=== PATIENT | male | born 1940 | race Caucasian/White ===

== ENCOUNTER 2022-11-16 11:15 | Emergency (ER) | payer MEDICARE ==
[~2022-11-16] VITALS: Ht 177.8 cm; Wt 97.0 kg
[~2022-11-16 11:15] MED LIST: ALLO100T PO; CARV-50 PO; CHOL400T32 PO; DILT60TA41 PO; FURO-150 PO; HYDR200T84 PO; LOVA40TA76 PO; METF500T PO; POTA-188 PO; RIVA20TA PO
[2022-11-16 11:18] VITALS: BP 154/67
[2022-11-16 12:20] LABS: CLARITY,URINE CLOUDY (Clear); COLOR,URINE RED (Yellow); GLUCOSE, URINE NEGATIVE (Neg); KETONES,URINE NEGATIVE (Neg); LEUKOCYTE ESTERASE ,URINE TRACE (Neg); OCCULT BLOOD,URINE LARGE (Neg); PH,URINE 5.5 (4.8-8.0); PROTEIN,URINE 100 mg/dl (Neg); UROBILINOGEN,URINE 0.2 E.U/dL (0.2-1.0)
[2022-11-16 12:23] LABS: UA COLLECTION TYPE STRAIGHT CATH
[2022-11-16 12:24] LABS: NITRITES, URINE NEGATIVE (Neg); WBC,URINE 0-4 /HPF (0-4)
[2022-11-16 12:25] LABS: BACTERIA,URINE FEW /HPF (Neg); MUCUS STRANDS NONE SEEN /LPF (Neg); RBC,URINE TNTC /HPF (0-2); SQUAMOUS EPITHELIAL CELL,UR NONE SEEN /LPF (FEW)
== END 2022-11-16 13:29 | disposition home or self-care (01) ==
LOC: ER 11:16
DX: R33.9 Retention of urine, unspecified (principal); R31.9 Hematuria, unspecified; E78.00 Pure hypercholesterolemia, unspecified; I11.9 Hypertensive heart disease without heart failure; I10 Essential (primary) hypertension; E11.9 Type 2 diabetes mellitus without complications; F17.200 Nicotine dependence, unspecified, uncomplicated
CPT/HCPCS: 51702; 81001; 87088; 99284; A4338; A4358

== ENCOUNTER 2022-11-29 09:18 | Inpatient (IN) | payer MEDICARE, OTHER ==
[~2022-11-29] VITALS: Ht 177.8 cm; Wt 95.5 kg
[2022-11-29 10:13] LABS: BASOPHILS # (AUTO) 0.1 X10'3 (0-0.2); BASOPHILS % (AUTO) 1.3 % (0-1); EOSINOPHILS # (AUTO) 0.2 X10'3 (0-0.9); EOSINOPHILS % (AUTO) 4.3 % (0-6); HEMATOCRIT 27.5 % (42.0-52.0); HEMOGLOBIN 8.9 g/dl (14.0-17.9); LYMPHOCYTES # (AUTO) 1.1 X10'3 (1.1-4.8); LYMPHOCYTES % (AUTO) 19.7 % (21-51); MEAN CORPUSCULAR HEMOGLOBIN 31.7 PG (27.0-31.0); MEAN CORPUSCULAR HGB CONC 32.5 g/dL (33.0-36.5); MEAN CORPUSCULAR VOLUME 97.4 FL (78-98); MEAN PLATELET VOLUME 8.7 FL (7.4-10.4); MONOCYTES # (AUTO) 0.5 X10'3 (0-0.9); MONOCYTES % (AUTO) 8.5 % (2-12); NEUTROPHILS # (AUTO) 3.8 X10'3 (1.8-7.7); NEUTROPHILS % (AUTO) 66.2 % (42-75); PLATELET COUNT 208 X10'3 (140-440); RED BLOOD COUNT 2.83 X10'6 (4.70-6.10); RED CELL DISTRIBUTION WIDTH 15.9 % (11.5-14.5); WHITE BLOOD COUNT 5.8 X10'3 (4.5-11.0)
[2022-11-29 10:34] LABS: ALANINE AMINOTRANSFERASE 25 U/L (12-78); ALBUMIN 3.3 G/DL (3.4-5.0); ALKALINE PHOSPHATASE 125 IU/L (46-116); ANION GAP 10 (8-16); ASPARTATE AMINO TRANSFERASE 23 U/L (10-37); BLOOD UREA NITROGEN 16 MG/DL (7-18); BUN/CREATININE RATIO 10.9 (5.4-32.0); CALCIUM 8.5 MG/DL (8.5-10.1); CHLORIDE 108 MMOL/L (99-107); CREATININE 1.47 MG/DL (0.60-1.10); GLUCOSE 155 MG/DL (70-104); MAGNESIUM 1.7 MG/DL (1.5-2.4); POTASSIUM 4.1 MMOL/L (3.5-5.1); SODIUM 143 MMOL/L (135-145); TOTAL CARBON DIOXIDE 25.4 MMOL/L (24-32); TOTAL PROTEIN 6.5 G/DL (6.4-8.2); eGFR 46 ML/MIN
[2022-11-29] MEDS ORDERED: aspirin 81mg tab.chew PO ONE (11:35)
[2022-11-29] MEDS ORDERED: PERFLUTREN PROTEIN-A MICROSPHR (Optison) 0.22 MG/ML 3ML VIAL IV ONE (12:05)
[2022-11-29] MEDS ORDERED: acetaminophen 325mg tablet PO PRN (12:05)
[2022-11-29] MEDS ORDERED: magnesium hydroxide 30ml (MOM) UD suspension PO PRN (12:05)
[2022-11-29] MEDS ORDERED: magnesium 4gm in 100ml NS 100 ML IV PRN (12:05)
[2022-11-29] MEDS ORDERED: ondansetron/PF 4mg/2ml inj IV PRN (12:05)
[2022-11-29] MEDS ORDERED: potassium Cl 40MEQ/1/2NS 520ml 520 ML IV PRN (12:05)
[2022-11-29] MEDS ORDERED: mag hydrox/Alum hydrox/simeth 30ml oral suspension PO PRN (12:05)
[2022-11-29] MEDS ORDERED: magnesium Cl slow-release 64mg tablet PO PRN (12:05)
[2022-11-29] MEDS ORDERED: potassium Cl 20 mEq SR tablet PO PRN ×2 (12:05)
--- NOTE | 2022-11-29 12:29 | NUR ---
REFUSED ASA . STATES HE IS TAKING COUMADIN AND DR BROTHERS TOLD HIM NEVER TO TAKE ASA AGAIN.
[2022-11-29] MEDS ORDERED: CefTRIAXone 2gm/D5W 50ml BAG 50 ML IV ONE (13:40)
[2022-11-29] MEDS ORDERED: PIOG30TA71 PO (14:32)
[2022-11-29] MEDS ORDERED: ATOR10TA70 PO (14:32)
[2022-11-29] MEDS ORDERED: FURO40TA4 PO (14:32)
[2022-11-29] MEDS ORDERED: WARF-55 PO (14:32)
[2022-11-29] MEDS ORDERED: GLIM2TAB6 PO (14:32)
[2022-11-29] MEDS ORDERED: LISI20TA28 PO (14:32)
[2022-11-29] MEDS ORDERED: CARV25TA2 PO (14:32)
[2022-11-29] MEDS ORDERED: POTA-197 PO (14:32)
[2022-11-29] MEDS ORDERED: WARF5TAB9 PO (14:32)
[2022-11-29] MEDS ORDERED: ATOR-2 PO (14:33)
[2022-11-29] MEDS ORDERED: morphine 4 MG/ML inj SYRINge IV ONE (16:50)
[2022-11-29] MEDS: K and/or MAG REPLACEMENT MC SCH (20:00)
[2022-11-29] MEDS: docusate sod 100mg capsule PO SCH (20:00)
[2022-11-29] MEDS: furosemide 40mg/4ml inj IV SCH (20:19)
[2022-11-29] MEDS: carVEDilol 12.5mg tablet PO SCH (20:19)
--- NOTE | 2022-11-29 20:30 | NUR ---
Patient in room PCU 3015. I have received report from Chely CEJA RN and had the opportunity to ask questions and assume patient care.
[2022-11-29 22:00] VITALS: BP 153/85
[2022-11-30 02:00] VITALS: BP 149/80
[2022-11-30 06:31] LABS: BASOPHILS # (AUTO) 0.1 X10'3 (0-0.2); BASOPHILS % (AUTO) 0.9 % (0-1); EOSINOPHILS # (AUTO) 0.1 X10'3 (0-0.9); EOSINOPHILS % (AUTO) 1.2 % (0-6); HEMATOCRIT 28.1 % (42.0-52.0); HEMOGLOBIN 9.2 g/dl (14.0-17.9); LYMPHOCYTES # (AUTO) 1.1 X10'3 (1.1-4.8); LYMPHOCYTES % (AUTO) 12.3 % (21-51); MEAN CORPUSCULAR HEMOGLOBIN 32.2 PG (27.0-31.0); MEAN CORPUSCULAR HGB CONC 32.8 g/dL (33.0-36.5); MEAN CORPUSCULAR VOLUME 98.1 FL (78-98); MEAN PLATELET VOLUME 8.8 FL (7.4-10.4); MONOCYTES # (AUTO) 0.8 X10'3 (0-0.9); MONOCYTES % (AUTO) 9.6 % (2-12); NEUTROPHILS # (AUTO) 6.6 X10'3 (1.8-7.7); PLATELET COUNT 195 X10'3 (140-440); RED BLOOD COUNT 2.86 X10'6 (4.70-6.10); WHITE BLOOD COUNT 8.7 X10'3 (4.5-11.0)
[2022-11-30 07:01] LABS: ALBUMIN 3.3 G/DL (3.4-5.0); ANION GAP 11 (8-16); BLOOD UREA NITROGEN 21 MG/DL (7-18); BUN/CREATININE RATIO 13.5 (5.4-32.0); CALCIUM 8.7 MG/DL (8.5-10.1); CHLORIDE 105 MMOL/L (99-107); CREATININE 1.55 MG/DL (0.60-1.10); GLUCOSE 167 MG/DL (70-104); MAGNESIUM 1.6 MG/DL (1.5-2.4); POTASSIUM 3.8 MMOL/L (3.5-5.1); SODIUM 143 MMOL/L (135-145); TOTAL CARBON DIOXIDE 26.6 MMOL/L (24-32); eGFR 43 ML/MIN
[2022-11-30 08:00] VITALS: BP 159/94
[2022-11-30] MEDS ORDERED: potassium Cl 20 mEq SR tablet PO SCH (08:00)
[2022-11-30] MEDS: K and/or MAG REPLACEMENT MC SCH ×2 (08:00→18:59)
[2022-11-30] MEDS: furosemide 40mg/4ml inj IV SCH ×2 (09:09→21:34)
[2022-11-30] MEDS: docusate sod 100mg capsule PO SCH ×2 (09:09→20:00)
[2022-11-30] MEDS: atorvastatin 20mg tablet PO SCH (09:09)
[2022-11-30] MEDS: carVEDilol 12.5mg tablet PO SCH ×2 (09:10→21:33)
[2022-11-30] MEDS: lisinopril 20mg tablet PO SCH (09:12)
[2022-11-30] MEDS: pioglitazone 15mg tablet PO SCH (09:14)
[2022-11-30 12:00] VITALS: BP 122/68
[2022-11-30 16:00] VITALS: BP 135/72
[2022-11-30] MEDS ORDERED: DEXTROSE 15 GM of carb/4 tabs (each vial/BOTTLE has 4 tablets) PO PRN ×2 (16:25)
[2022-11-30] MEDS ORDERED: dextrose 50%-water 50ml dispensing syringe IV PRN ×2 (16:25)
[2022-11-30] MEDS ORDERED: glucagon, human recombinant 1mg kit SUBCUT PRN (16:25)
[2022-11-30] MEDS ORDERED: insulin Lispro (HumaLOG) vial - multi-dose SQ SCH (16:25)
[2022-11-30] MEDS ORDERED: MESSAGE TO PHARMACY PO ONE (16:25)
[2022-11-30 17:10] LABS: HEMOGLOBIN A1C 5.6 % (4.5-6.2)
[2022-11-30] MEDS ORDERED: insulin glargine (Lantus) pen - multi-dose SQ SCH (21:00)
[2022-11-30 22:00] VITALS: BP 137/71
[2022-12-01 06:00] VITALS: BP 159/98
--- NOTE | 2022-12-01 06:32 | NUR ---
I received report from MINA Avendaño and pt. Will continue to monitor.
[2022-12-01 06:57] LABS: ALBUMIN 3.1 G/DL (3.4-5.0); ANION GAP 5 (8-16); BASOPHILS # (AUTO) 0.1 X10'3 (0-0.2); BASOPHILS % (AUTO) 0.8 % (0-1); BLOOD UREA NITROGEN 21 MG/DL (7-18); BUN/CREATININE RATIO 14.7 (5.4-32.0); CALCIUM 8.2 MG/DL (8.5-10.1); CHLORIDE 104 MMOL/L (99-107); CREATININE 1.43 MG/DL (0.60-1.10); EOSINOPHILS # (AUTO) 0.3 X10'3 (0-0.9); EOSINOPHILS % (AUTO) 2.8 % (0-6); GLUCOSE 136 MG/DL (70-104); HEMATOCRIT 28.6 % (42.0-52.0); HEMOGLOBIN 9.7 g/dl (14.0-17.9); LYMPHOCYTES # (AUTO) 1.4 X10'3 (1.1-4.8); MAGNESIUM 1.6 MG/DL (1.5-2.4); MEAN CORPUSCULAR HEMOGLOBIN 32.1 PG (27.0-31.0); MEAN CORPUSCULAR VOLUME 94.5 FL (78-98); MEAN PLATELET VOLUME 9.1 FL (7.4-10.4); MONOCYTES # (AUTO) 0.8 X10'3 (0-0.9); MONOCYTES % (AUTO) 8.7 % (2-12); NEUTROPHILS # (AUTO) 6.6 X10'3 (1.8-7.7); NEUTROPHILS % (AUTO) 72.7 % (42-75); PLATELET COUNT 226 X10'3 (140-440); RED BLOOD COUNT 3.03 X10'6 (4.70-6.10); RED CELL DISTRIBUTION WIDTH 15.4 % (11.5-14.5); SODIUM 145 MMOL/L (135-145); WHITE BLOOD COUNT 9.1 X10'3 (4.5-11.0); eGFR 47 ML/MIN
[2022-12-01 07:01] LABS: POTASSIUM 2.8 MMOL/L (3.5-5.1)
--- NOTE | 2022-12-01 07:18 | NUR ---
3015B Deppe, E. ARCHIVAL STUDIES PROFESSOR K+ 2.8 will replace per pro. Prudence [id number] notified
[2022-12-01] MEDS: furosemide 40mg/4ml inj IV SCH (07:38)
[2022-12-01] MEDS: pioglitazone 15mg tablet PO SCH (07:38)
[2022-12-01] MEDS: lisinopril 20mg tablet PO SCH (07:39)
[2022-12-01] MEDS: carVEDilol 12.5mg tablet PO SCH (07:40)
[2022-12-01] MEDS: atorvastatin 20mg tablet PO SCH (07:40)
[2022-12-01 11:00] VITALS: BP 128/60
== END 2022-12-01 13:18 | disposition home or self-care (01) | DRG 280 ==
LOC: ER 09:18 → ED HOLD 12:04 → EDBEDREQ 20:01 → PCU 3S 20:30
PROVIDERS: ADMIT Family Medicine; ATTEND Family Medicine
DX: I11.0 Hypertensive heart disease with heart failure (principal); I50.23 Acute on chronic systolic (congestive) heart failure; I21.A1 Myocardial infarction type 2; D62 Acute posthemorrhagic anemia; R31.0 Gross hematuria; Z20.822 Contact with and (suspected) exposure to COVID-19; E11.9 Type 2 diabetes mellitus without complications; E78.00 Pure hypercholesterolemia, unspecified; M10.9 Gout, unspecified; I25.10 Atherosclerotic heart disease of native coronary artery without angina pectoris; I48.91 Unspecified atrial fibrillation; M06.9 Rheumatoid arthritis, unspecified; Z79.01 Long term (current) use of anticoagulants; Z85.46 Personal history of malignant neoplasm of prostate; Z95.1 Presence of aortocoronary bypass graft; Z95.810 Presence of automatic (implantable) cardiac defibrillator; Z79.899 Other long term (current) drug therapy
CPT/HCPCS: 36415; 71046; 76770; 80048; 80053; 82948; 83036; 83735; 83880; 84145; 84484; 85025; 85610; 87081; 87502; 87503; 87811; 93306; 99285; A4346; A4355; A4358; G0378; J0696; J1815; J1940; J2270

== ENCOUNTER 2022-12-17 08:42 | Emergency (ER) | payer MEDICARE, OTHER ==
[~2022-12-17] VITALS: Ht 177.8 cm; Wt 96.0 kg
[~2022-12-17 08:42] MED LIST changes: -ALLO100T PO; +ATOR-2 PO; -CARV-50 PO; +CARV25TA2 PO; -CHOL400T32 PO; -DILT60TA41 PO; -FURO-150 PO; +FURO40TA4 PO; +GLIM2TAB6 PO; -HYDR200T84 PO; +LISI20TA28 PO; -LOVA40TA76 PO; -METF500T PO; +PIOG30TA71 PO; -POTA-188 PO; +POTA-197 PO; -RIVA20TA PO; +WARF-55 PO; +WARF5TAB9 PO
[2022-12-17 09:56] LABS: BASOPHILS # (AUTO) 0.1 X10'3 (0-0.2); BASOPHILS % (AUTO) 1.4 % (0-1); EOSINOPHILS # (AUTO) 0.3 X10'3 (0-0.9); EOSINOPHILS % (AUTO) 5.7 % (0-6); HEMATOCRIT 27.5 % (42.0-52.0); HEMOGLOBIN 8.5 g/dl (14.0-17.9); LYMPHOCYTES # (AUTO) 0.8 X10'3 (1.1-4.8); LYMPHOCYTES % (AUTO) 16.2 % (21-51); MEAN CORPUSCULAR HEMOGLOBIN 29.8 PG (27.0-31.0); MEAN CORPUSCULAR VOLUME 95.9 FL (78-98); MONOCYTES # (AUTO) 0.4 X10'3 (0-0.9); NEUTROPHILS # (AUTO) 3.6 X10'3 (1.8-7.7); NEUTROPHILS % (AUTO) 69.7 % (42-75); PLATELET COUNT 222 X10'3 (140-440); RED BLOOD COUNT 2.87 X10'6 (4.70-6.10); RED CELL DISTRIBUTION WIDTH 17.2 % (11.5-14.5); WHITE BLOOD COUNT 5.2 X10'3 (4.5-11.0)
[2022-12-17 10:36] LABS: ALANINE AMINOTRANSFERASE 19 U/L (12-78); ALBUMIN 3.4 G/DL (3.4-5.0); ALKALINE PHOSPHATASE 114 IU/L (46-116); ANION GAP 9 (8-16); ASPARTATE AMINO TRANSFERASE 19 U/L (10-37); BILIRUBIN,TOTAL 0.6 MG/DL (0.1-1.0); BLOOD UREA NITROGEN 31 MG/DL (7-18); CHLORIDE 106 MMOL/L (99-107); CREATININE 1.63 MG/DL (0.60-1.10); GLUCOSE 88 MG/DL (70-104); MAGNESIUM 2.2 MG/DL (1.5-2.4); POTASSIUM 4.1 MMOL/L (3.5-5.1); SODIUM 141 MMOL/L (135-145); TOTAL CARBON DIOXIDE 26.5 MMOL/L (24-32); TOTAL PROTEIN 6.9 G/DL (6.4-8.2); eGFR 41 ML/MIN
[2022-12-17 11:47] VITALS: BP 166/84
== END 2022-12-17 12:07 | disposition home or self-care (01) ==
LOC: ER 08:43
DX: I48.91 Unspecified atrial fibrillation (principal); I11.0 Hypertensive heart disease with heart failure; I50.9 Heart failure, unspecified; I25.10 Atherosclerotic heart disease of native coronary artery without angina pectoris; R77.8 Other specified abnormalities of plasma proteins; E11.9 Type 2 diabetes mellitus without complications; G47.30 Sleep apnea, unspecified; Z95.1 Presence of aortocoronary bypass graft; Z72.89 Other problems related to lifestyle; Z79.899 Other long term (current) drug therapy
CPT/HCPCS: 36415; 71045; 80053; 83735; 83880; 84484; 85025; 93005; 99285

== ENCOUNTER 2023-02-11 11:33 | Day surgery (SDC) | payer MEDICARE, OTHER ==
[~2023-02-11] VITALS: Ht 177.8 cm; Wt 99.1 kg
[2023-02-11] VITALS (9 sets, daily range): BP systolic 112–142; BP diastolic 56–93
[2023-02-11] MEDS ORDERED: LORazepam 0.5 MG tablet PO PRN (12:00)
[2023-02-11] MEDS ORDERED: normal saline 1,000 ML IV SCH (12:00)
[2023-02-11] MEDS ORDERED: METO5TAB7 PO (12:06)
[2023-02-11] MEDS ORDERED: BETA1TAB20 PO (12:06)
[2023-02-11] MEDS ORDERED: CHOL500050 PO (12:06)
[2023-02-11] MEDS ORDERED: iohexol 350 MG/ML 50ML vial IV ONE (13:39)
[2023-02-11] MEDS ORDERED: midazolam 1 mg/ML 2ml injection ONE (13:39)
[2023-02-11] MEDS ORDERED: fentaNYL/PF 50MCG/1 ML 2ML syringe ONE (13:39)
[2023-02-11] MEDS ORDERED: heparin 1,000unit/ml 10ml vial 10 ML ONE (13:39)
[2023-02-11] MEDS ORDERED: LIDOcaine 1% 30ml preserv. free vial ONE (13:39)
[2023-02-11] MEDS ORDERED: HYDROcodone/acetaminophen 5mg/325mg tablet PO PRN (15:10)
[2023-02-11] MEDS ORDERED: HYDROcodone/acetaminophen 10/325mg tab PO PRN (15:10)
[2023-02-12 06:45] LABS: ISTAT Hct MIX 22 %PCV (42-52); ISTAT O2 SATURATION MIX VENOUS 65 % (60-80); ISTAT SOURCE BLNK
== END 2023-02-11 17:15 | disposition home or self-care (01) ==
LOC: SSTAY O 11:33
PROVIDERS: ATTEND Student in an Organized Health Care Education/Training Program
DX: I11.0 Hypertensive heart disease with heart failure (principal); I50.22 Chronic systolic (congestive) heart failure; I48.91 Unspecified atrial fibrillation; E78.5 Hyperlipidemia, unspecified; I25.2 Old myocardial infarction; R73.03 Prediabetes; I25.10 Atherosclerotic heart disease of native coronary artery without angina pectoris; Z95.1 Presence of aortocoronary bypass graft; Z79.84 Long term (current) use of oral hypoglycemic drugs; Z79.899 Other long term (current) drug therapy
CPT/HCPCS: 33289; 76937; 82803; 82948; 85014; 93005; 99152; 99153; C1751; C1769; C2624; J1644; J2250; J3010; J3490; J7030; Q9967; A6258; A6449; C1894

== ENCOUNTER 2023-07-09 09:05 | Outpatient (CLI) | payer MEDICARE, OTHER ==
[~2023-07-09 09:05] MED LIST changes: +BETA1TAB20 PO; +CHOL500050 PO; +METO5TAB7 PO; -WARF-55 PO
[2023-07-09 09:37] LABS: BASOPHILS # (AUTO) 0.1 X10'3 (0-0.2); EOSINOPHILS # (AUTO) 0.6 X10'3 (0-0.9); EOSINOPHILS % (AUTO) 10.1 % (0-6); HEMATOCRIT 35.7 % (42.0-52.0); HEMOGLOBIN 11.8 g/dl (14.0-17.9); LYMPHOCYTES # (AUTO) 1.3 X10'3 (1.1-4.8); LYMPHOCYTES % (AUTO) 21.3 % (21-51); MEAN CORPUSCULAR HEMOGLOBIN 29.1 PG (27.0-31.0); MEAN CORPUSCULAR VOLUME 88.2 FL (78-98); MONOCYTES # (AUTO) 0.5 X10'3 (0-0.9); MONOCYTES % (AUTO) 8.2 % (2-12); NEUTROPHILS # (AUTO) 3.6 X10'3 (1.8-7.7); NEUTROPHILS % (AUTO) 59.4 % (42-75); PLATELET COUNT 164 X10'3 (140-440); RED BLOOD COUNT 4.05 X10'6 (4.70-6.10); RED CELL DISTRIBUTION WIDTH 18.6 % (11.5-14.5); WHITE BLOOD COUNT 6.1 X10'3 (4.5-11.0)
[2023-07-09 09:46] LABS: INR 2.4 INR; PROTHROMBIN TIME 24.9 SECONDS (9.0-12.0)
[2023-07-09 09:49] LABS: ALANINE AMINOTRANSFERASE 17 U/L (12-78); ALBUMIN 3.5 G/DL (3.4-5.0); ALBUMIN/GLOBULIN RATIO 0.9 (1.1-1.5); ALKALINE PHOSPHATASE 164 IU/L (46-116); ANION GAP 9 (8-16); ASPARTATE AMINO TRANSFERASE 16 U/L (10-37); BILIRUBIN,TOTAL 0.9 MG/DL (0.1-1.0); BLOOD UREA NITROGEN 20 MG/DL (7-18); BUN/CREATININE RATIO 15.7 (10.0-20.0); CALCIUM 8.7 MG/DL (8.5-10.1); CHLORIDE 105 MMOL/L (99-107); CREATININE 1.27 MG/DL (0.60-1.10); GLUCOSE 150 MG/DL (70-104); SODIUM 144 MMOL/L (135-145); TOTAL CARBON DIOXIDE 29.7 MMOL/L (24-32); TOTAL PROTEIN 7.5 G/DL (6.4-8.2); eGFR 54 ML/MIN
[2023-07-09] MEDS ORDERED: iohexol 350MG/ML 100ml bottle IV ONE (10:18)
[2023-07-09] MEDS ORDERED: IODIXANOL 320 MG/ML INFUS..BTL 100ML IV ONE (11:08)
[2023-07-09 12:16] LABS: ANISOCYTOSIS 2+; PLATELET ESTIMATE NORMAL
[2023-07-09 12:17] LABS: BURR CELLS 1+; ELLIPTOCYTES FEW
== END 2023-07-09 23:59 | disposition home or self-care (01) ==
LOC: RAD 09:05
PROVIDERS: ATTEND Student in an Organized Health Care Education/Training Program
DX: I48.91 Unspecified atrial fibrillation (principal); I48.92 Unspecified atrial flutter; I25.10 Atherosclerotic heart disease of native coronary artery without angina pectoris; I70.0 Atherosclerosis of aorta; I51.7 Cardiomegaly; M47.814 Spondylosis without myelopathy or radiculopathy, thoracic region; M25.78 Osteophyte, vertebrae; Z95.1 Presence of aortocoronary bypass graft; Z98.890 Other specified postprocedural states
CPT/HCPCS: 36415; 75572; 80053; 85008; 85025; 85610; J3490; Q9967; 76377

== ENCOUNTER 2023-07-24 08:41 | Inpatient (IN) | payer MEDICARE, OTHER ==
[2023-07-16 11:00] LABS: BASOPHILS # (AUTO) 0.1 X10'3 (0-0.2); BASOPHILS % (AUTO) 0.9 % (0-1); EOSINOPHILS # (AUTO) 0.6 X10'3 (0-0.9); EOSINOPHILS % (AUTO) 7.4 % (0-6); LYMPHOCYTES # (AUTO) 1.2 X10'3 (1.1-4.8); LYMPHOCYTES % (AUTO) 14.8 % (21-51); MEAN CORPUSCULAR HEMOGLOBIN 29.1 PG (27.0-31.0); MEAN CORPUSCULAR HGB CONC 32.6 g/dL (33.0-36.5); MEAN CORPUSCULAR VOLUME 89.4 FL (78-98); MEAN PLATELET VOLUME 9.3 FL (7.4-10.4); MONOCYTES # (AUTO) 0.6 X10'3 (0-0.9); MONOCYTES % (AUTO) 7.4 % (2-12); NEUTROPHILS # (AUTO) 5.5 X10'3 (1.8-7.7); NEUTROPHILS % (AUTO) 69.5 % (42-75); PRE OP HEMATOCRIT 36.9 % (42.0-52.0); PRE OP PLATELET COUNT 163 X10'3 (140-440); PRE OP WHITE BLOOD COUNT 7.9 10'3 (4.8-10.8); RED BLOOD COUNT 4.13 X10'6 (4.70-6.10)
[2023-07-16 11:11] LABS: PRE OP PROTIME 21.4 SECONDS (9.0-12.0)
[2023-07-16 11:24] LABS: ALBUMIN 3.5 G/DL (3.4-5.0); ALBUMIN/GLOBULIN RATIO 0.9 (1.1-1.5); ALKALINE PHOSPHATASE 158 IU/L (46-116); BLOOD UREA NITROGEN 17 MG/DL (7-18); BUN/CREATININE RATIO 12.9 (10.0-20.0); CHLORIDE 107 MMOL/L (99-107); CREATININE 1.32 MG/DL (0.60-1.10); PRE OP ALT 11 U/L (30-65); PRE OP ANION GAP 6 (8-16); PRE OP AST 20 U/L (10-37); PRE OP BILIRUB, TOTAL 1.2 MG/DL (0.0-1.0); PRE OP GLUCOSE 123 MG/DL (70-104); PRE OP POTASSIUM 4.1 MMOL/L (3.4-5.1); PRE OP SODIUM 141 MMOL/L (135-145); TOTAL CARBON DIOXIDE 27.9 MMOL/L (24-32); TOTAL PROTEIN 7.5 G/DL (6.4-8.2); eGFR 52 ML/MIN
[2023-07-16 11:28] LABS: BILIRUBIN,URINE NEGATIVE (Neg); CLARITY,URINE SLIGHTLY CLOUDY (Clear); COLOR,URINE YELLOW (Yellow); GLUCOSE, URINE NEGATIVE (Neg); KETONES,URINE NEGATIVE (Neg); LEUKOCYTE ESTERASE ,URINE SMALL (Neg); NITRITES, URINE NEGATIVE (Neg); OCCULT BLOOD,URINE TRACE-INTACT (Neg); PH,URINE 7.5 (4.8-8.0); PROTEIN,URINE 100 mg/dl (Neg)
[2023-07-16 11:29] LABS: UA COLLECTION TYPE CLN CATCH MIDSTREAM
[2023-07-16 11:31] LABS: HEMOGLOBIN A1C 8.1 % (4.5-6.2)
[2023-07-16 11:36] LABS: BACTERIA,URINE 1+ /HPF (Neg); SQUAMOUS EPITHELIAL CELL,UR FEW /LPF (FEW); TRANSITIONAL EPI CELLS,URINE FEW /HPF; WBC CLUMPS,URINE MODERATE /HPF (NEGATIVE); WBC,URINE TNTC /HPF (0-4)
[2023-07-16 11:43] LABS: PRE OP INR 2.1 INR
[2023-07-16 12:05] LABS: CALCIUM 9.2 MG/DL (8.5-10.1)
[2023-07-24] VITALS (20 sets, daily range): BP systolic 81–163; BP diastolic 63–91; PULSE 63–88; RESP 12–21; TEMP 97.8–98.2; O2SAT 90–99
[~2023-07-24] VITALS: Ht 172.7 cm; Wt 102.1 kg
[2023-07-24] MEDS: ringers solution, lacted 1,000 ML IV SCH (05:00)
[~2023-07-24 08:41] MED LIST changes: +CIPR-429 PO; +DOCUMENT DATE & TIME OF BETA-BLOCKER PO ONE; -METO5TAB7 PO; -PIOG30TA71 PO; +WARF-55 PO; +cefazolin 2gm/D5W 100mL 100 ML IV ONE; +famotidine 20mg tablet PO ONE; +ondansetron/PF 4mg/2ml inj IV PRN; +vancomycin 1,500 MG in NS 300ml IV soln IV ONE
[2023-07-24 10:46] LABS: PRE OP INR 1.3 INR; PRE OP PROTIME 14.2 SECONDS (9.0-12.0)
[2023-07-24] MEDS ORDERED: ePHEDrine 50MG/ML INJ. ONE (16:14)
[2023-07-24] MEDS ORDERED: heparin 1,000unit/ml 10ml vial 10 ML ONE ×2 (16:14→17:26)
[2023-07-24] MEDS ORDERED: LIDOcaine 1% (10mg/ml) 2ml vial ONE (16:47)
[2023-07-24] MEDS ORDERED: iohexol 350MG/ML 100ml bottle IV ONE (16:49)
[2023-07-24] MEDS ORDERED: sevoflurane 250ml liquid IH ONE (17:08)
[2023-07-24] MEDS ORDERED: fentaNYL/PF 50MCG/1 ML 2ML syringe ONE (17:10)
[2023-07-24] MEDS ORDERED: midazolam 1 mg/ML 2ml injection ONE (17:11)
[2023-07-24] MEDS ORDERED: propofol inj 20 ML IV ONE (17:25)
[2023-07-24] MEDS ORDERED: LIDOcaine 1%/PF 5ML 10 MG/ML VIAL ONE ×2 (17:26→17:55)
[2023-07-24] MEDS ORDERED: dexamethasone sod phosphate 4mg/ml inj. ONE (17:35)
[2023-07-24] MEDS ORDERED: ondansetron/PF 4mg/2ml inj ONE (17:35)
--- NOTE | 2023-07-24 18:09 | NUR ---
Received from OR via BED IN STABLE CONDITION AND RIGHT GROIN STABLE , accompanied by Anesthesiologist and DOUBLE NEEDLE OPERATOR LOCKSTITCH report given by DOUBLE NEEDLE OPERATOR LOCKSTITCH AND Anesthesiolgist. Addendum: 07/24/23 at 1903 by Alvina Maya RN Amended: Links added.
[2023-07-24] MEDS ORDERED: ondansetron/PF 4mg/2ml inj IV PRN ×2 (18:10→18:20)
[2023-07-24] MEDS ORDERED: glucagon, human recombinant 1mg kit SUBCUT PRN (18:10)
[2023-07-24] MEDS ORDERED: insulin Lispro (HumaLOG) vial - multi-dose SQ SCH (18:10)
[2023-07-24] MEDS ORDERED: labetalol 20mg/4ml (5mg/ml) syringe IV PRN ×2 (18:10→18:20)
[2023-07-24] MEDS ORDERED: potassium Cl 40MEQ/270ML bag 250 ML IV PRN (18:10)
[2023-07-24] MEDS ORDERED: potassium Cl 20 mEq SR tablet PO PRN (18:10)
[2023-07-24] MEDS ORDERED: insulin regular, human U-100 3ml vial - multi-dose SQ SCH (18:10)
[2023-07-24] MEDS ORDERED: diphenhydrAMINE 25mg capsule PO PRN (18:10)
[2023-07-24] MEDS ORDERED: normal saline 1000ml 1,000 ML IV SCH (18:10)
[2023-07-24] MEDS ORDERED: proCHLORperazine 10 MG/2 ml inj IV PRN ×2 (18:10→18:20)
[2023-07-24] MEDS ORDERED: DEXTROSE 15 GM of carb/4 tabs (each vial/BOTTLE has 4 tablets) PO PRN ×2 (18:10)
[2023-07-24] MEDS ORDERED: dextrose 50%-water 50ml dispensing syringe IV PRN ×2 (18:10)
[2023-07-24] MEDS ORDERED: docusate sod 100mg capsule PO PRN (18:10)
[2023-07-24] MEDS ORDERED: magnesium 2GM in 50ml NS 50 ML IV PRN (18:10)
[2023-07-24] MEDS ORDERED: hydrALAZINE 20mg/ml inj. IV PRN ×2 (18:10→18:20)
[2023-07-24] MEDS ORDERED: MESSAGE TO PHARMACY PO ONE (18:10)
[2023-07-24] MEDS ORDERED: potassium Cl 40MEQ/1/2NS 520ml 520 ML IV PRN (18:10)
[2023-07-24] MEDS ORDERED: potassium CL 10mEq/100ml bag 100 ML IV PRN (18:10)
[2023-07-24] MEDS ORDERED: potassium Cl 20mEq/100mL bag 100 ML IV PRN (18:10)
[2023-07-24] MEDS ORDERED: ALPRAZolam 0.25mg tablet PO PRN (18:10)
[2023-07-24] MEDS ORDERED: acetaminophen 325mg tablet PO PRN (18:10)
[2023-07-24] MEDS ORDERED: magnesium 4gm in 100ml NS 100 ML IV PRN (18:10)
[2023-07-24] MEDS ORDERED: pantoprazole 40mg Tablet.DR PO PRN (18:10)
[2023-07-24] MEDS ORDERED: morphine 2 MG/ML inj. syringe IV PRN (18:20)
[2023-07-24] MEDS ORDERED: morphine 4 MG/ML inj SYRINge IV PRN (18:20)
[2023-07-24] MEDS ORDERED: HYDROmorphone/PF 0.2 MG/ML SYRINGE IV PRN ×2 (18:20)
[2023-07-24] MEDS ORDERED: meperidine/PF 25mg/ml syringe IV PRN (18:20)
[2023-07-24] MEDS ORDERED: acetaminophen 1,000mg/100ml IV 100 ML IV PRN (18:20)
[2023-07-24] MEDS ORDERED: ringers solution, lacted 1,000 ML IV SCH (18:20)
--- NOTE | 2023-07-24 18:55 | NUR ---
ART LINE DC'D PRESSURE DRESSING APPLIED. Addendum: 07/24/23 at 1901 by Alvina Maya RN Amended: Links added.
--- NOTE | 2023-07-24 19:30 | NUR ---
Yancy BURR, PRESSURE APPLIED FOR 5 MIN THEN DRESSED. KIRSTEN SHIELDS. Addendum: 07/24/23 at 1941 by Alvina Maya RN Amended: Links added.
--- NOTE | 2023-07-24 19:49 | NUR ---
PATIENT DISCHARGED FROM PACU IN STABLE CONDITION AFTER REPORT GIVEN TO RN TAKING OVER PATIENTS CARE. PATIENT TRANSFERRED TO ROOM [facility] VIA BED WITH RN X2. Addendum: 07/24/23 at 2007 by Alvina Maya RN Amended: Links added.
--- NOTE | 2023-07-24 20:35 | NUR ---
Pt arrived on unit at 1958. Placed on Tele monitor and Q15 post op vitals. Pt will be flat until 2300. Right femoral access site is soft and no blood is present at site or on bandage at this time.
--- NOTE | 2023-07-24 20:37 | NUR ---
MD called for pain medication for pt. Telephone order given for [place] 5mg Q4H, PO, PRN for mild to moderate pain. Order placed per
[2023-07-24] MEDS ORDERED: HYDROcodone/acetaminophen 5mg/325mg tablet PO PRN (20:40)
[2023-07-24] MEDS ORDERED: insulin glargine (Lantus) pen - multi-dose SQ SCH (21:00)
[2023-07-24] MEDS ORDERED: atorvastatin 20mg tablet PO SCH (21:00)
[2023-07-24] MEDS: carVEDilol 12.5mg tablet PO SCH (21:11)
[2023-07-24] MEDS: ciprofloxacin 250mg tablet PO SCH (21:12)
[2023-07-25 00:08] VITALS: RESP 15; O2SAT 93
[2023-07-25 02:00] VITALS: BP 116/59; PULSE 67; RESP 13; TEMP 97.8; O2SAT 92
[2023-07-25 06:00] VITALS: BP 119/59; PULSE 63; RESP 16; TEMP 97.9; O2SAT 93
--- NOTE | 2023-07-25 06:03 | NUR ---
Pt up and walked around the unit with nurse, 300 ft, with no difficulty, pain, or dizziness.
--- NOTE | 2023-07-25 06:17 | NUR ---
Problems reprioritized. Patient report given, questions answered & plan of care reviewed with Daisy ENRIQUEZ.
[2023-07-25 07:22] LABS: BASOPHILS % (AUTO) 0.1 % (0-1); EOSINOPHILS % (AUTO) 0 % (0-6); HEMOGLOBIN 11.4 g/dl (14.0-17.9); LYMPHOCYTES # (AUTO) 0.5 X10'3 (1.1-4.8); MEAN CORPUSCULAR HEMOGLOBIN 29.8 PG (27.0-31.0); MEAN CORPUSCULAR HGB CONC 33.4 g/dL (33.0-36.5); MEAN CORPUSCULAR VOLUME 89.2 FL (78-98); MEAN PLATELET VOLUME 9.5 FL (7.4-10.4); MONOCYTES % (AUTO) 0.7 % (2-12); NEUTROPHILS # (AUTO) 5.5 X10'3 (1.8-7.7); NEUTROPHILS % (AUTO) 90.2 % (42-75); PLATELET COUNT 158 X10'3 (140-440); RED BLOOD COUNT 3.81 X10'6 (4.70-6.10); RED CELL DISTRIBUTION WIDTH 18.2 % (11.5-14.5); WHITE BLOOD COUNT 6.1 X10'3 (4.5-11.0)
[2023-07-25 07:34] LABS: INR 1.3 INR; PROTHROMBIN TIME 13.3 SECONDS (9.0-12.0)
[2023-07-25 07:56] VITALS: BP_SYST 119
[2023-07-25] MEDS: carVEDilol 12.5mg tablet PO SCH (07:57)
[2023-07-25] MEDS: sod chloride 0.9% 10ml flush syringe IV SCH ×2 (07:58)
[2023-07-25] MEDS ORDERED: potassium Cl 20 mEq SR tablet PO SCH (08:00)
[2023-07-25] MEDS ORDERED: lisinopril 20mg tablet PO SCH (08:00)
[2023-07-25] MEDS ORDERED: non-formulary drug (Cholecalciferol (Vitamin D3) (Vitamin D3) 1 CAP) PO SCH (08:00)
[2023-07-25] MEDS ORDERED: non-formulary drug (Vit A/Vit C/Vit E/Zinc/Copper (Preservision Tablet) 1 TAB) PO SCH (08:00)
[2023-07-25 08:28] LABS: ALANINE AMINOTRANSFERASE 20 U/L (12-78); ALBUMIN/GLOBULIN RATIO 0.8 (1.1-1.5); ALKALINE PHOSPHATASE 146 IU/L (46-116); ANION GAP 10 (8-16); ASPARTATE AMINO TRANSFERASE 21 U/L (10-37); BILIRUBIN,TOTAL 1.2 MG/DL (0.1-1.0); BLOOD UREA NITROGEN 27 MG/DL (7-18); BUN/CREATININE RATIO 18.9 (10.0-20.0); CALCIUM 8.7 MG/DL (8.5-10.1); CHLORIDE 105 MMOL/L (99-107); CREATININE 1.43 MG/DL (0.60-1.10); GLUCOSE 273 MG/DL (70-104); MAGNESIUM 1.8 MG/DL (1.5-2.4); POTASSIUM 4.2 MMOL/L (3.5-5.1); PRO BRAIN NATRIURETIC PEPTIDE 2731 PG/ML (0-450); SODIUM 138 MMOL/L (135-145); TOTAL CARBON DIOXIDE 23.2 MMOL/L (24-32); TOTAL PROTEIN 6.6 G/DL (6.4-8.2); eCRCL 37 ML/MIN; eGFR 47 ML/MIN
[2023-07-25] MEDS: ciprofloxacin 250mg tablet PO SCH (10:02)
--- NOTE | 2023-07-25 11:30 | NUR ---
Discharge instructions discussed with pt. all questions answered. device card given to pt with explanation. pt states he understands all instructions. Pt leaving unit via wheelchair to private car
[2023-07-25] MEDS ORDERED: warfarin 5mg tablet PO SCH (21:00)
[2023-07-26] MEDS ORDERED: warfarin 1mg tablet PO SCH (21:00)
== END 2023-07-25 11:50 | disposition home or self-care (01) | DRG 274 ==
LOC: PAS IN 08:41 → PCU 3S 19:55
PROVIDERS: ADMIT Student in an Organized Health Care Education/Training Program; ATTEND Student in an Organized Health Care Education/Training Program
PROC: B24BZZ4 Ultrasonography of Heart with Aorta, Transesophageal (ICD-10-PCS; 2023-07-24)
PROC: B44FZZZ Ultrasonography of Right Lower Extremity Arteries (ICD-10-PCS; 2023-07-24)
PROC: 4A133B1 Monitoring of Arterial Pressure, Peripheral, Percutaneous Approach (ICD-10-PCS; 2023-07-24)
PROC: 02L73DK Occlusion of Left Atrial Appendage with Intraluminal Device, Percutaneous Approach (ICD-10-PCS; principal; 2023-07-24 17:08)
DX: I48.91 Unspecified atrial fibrillation (principal); Z00.6 Encounter for examination for normal comparison and control in clinical research program; I50.20 Unspecified systolic (congestive) heart failure; I13.0 Hypertensive heart and chronic kidney disease with heart failure and stage 1 through stage 4 chronic kidney disease, or unspecified chronic kidney disease; I25.10 Atherosclerotic heart disease of native coronary artery without angina pectoris; N18.30 Chronic kidney disease, stage 3 unspecified; E78.5 Hyperlipidemia, unspecified; E11.22 Type 2 diabetes mellitus with diabetic chronic kidney disease; Z79.01 Long term (current) use of anticoagulants; Z95.810 Presence of automatic (implantable) cardiac defibrillator; Z79.84 Long term (current) use of oral hypoglycemic drugs; Z85.51 Personal history of malignant neoplasm of bladder; Z95.1 Presence of aortocoronary bypass graft; I34.0 Nonrheumatic mitral (valve) insufficiency; I36.1 Nonrheumatic tricuspid (valve) insufficiency
CPT/HCPCS: 33340; 36415; 71045; 71046; 76937; 80053; 81001; 82948; 83036; 83735; 83880; 85025; 85347; 85610; 85730; 86870; 86885; 86900; 86901; 86902; 86905; 86922; 87077; 87081; 87088; 87186; 93005; 93308; 93312; 93325; A4618; A6258; A6449; C1760; C1889; C1893; C1894; G0378; J0131; J0690; J1100; J1644; J1815; J2250; J2405; J2704; J3010; J3370; J3490; J7030; J7040; J7120; Q9967

== ENCOUNTER → 2023-09-12 | Outpatient (CLI) | payer MEDICARE, OTHER ==
[~2023-09-12] MED LIST changes: -DOCUMENT DATE & TIME OF BETA-BLOCKER PO ONE; -cefazolin 2gm/D5W 100mL 100 ML IV ONE; -famotidine 20mg tablet PO ONE; +iohexol 350MG/ML 100ml bottle IV ONE; -ondansetron/PF 4mg/2ml inj IV PRN; -vancomycin 1,500 MG in NS 300ml IV soln IV ONE
[2023-09-12 09:14] LABS: BASOPHILS # (AUTO) 0.1 X10'3 (0-0.2); BASOPHILS % (AUTO) 0.8 % (0-1); EOSINOPHILS # (AUTO) 0.3 X10'3 (0-0.9); HEMATOCRIT 34.6 % (42.0-52.0); HEMOGLOBIN 11.6 g/dl (14.0-17.9); LYMPHOCYTES # (AUTO) 1.1 X10'3 (1.1-4.8); LYMPHOCYTES % (AUTO) 15.8 % (21-51); MEAN CORPUSCULAR HEMOGLOBIN 30.3 PG (27.0-31.0); MEAN CORPUSCULAR HGB CONC 33.5 g/dL (33.0-36.5); MEAN CORPUSCULAR VOLUME 90.5 FL (78-98); MEAN PLATELET VOLUME 8.7 FL (7.4-10.4); MONOCYTES # (AUTO) 0.5 X10'3 (0-0.9); MONOCYTES % (AUTO) 7.4 % (2-12); NEUTROPHILS # (AUTO) 5.1 X10'3 (1.8-7.7); PLATELET COUNT 187 X10'3 (140-440); RED BLOOD COUNT 3.82 X10'6 (4.70-6.10); RED CELL DISTRIBUTION WIDTH 17.9 % (11.5-14.5)
[2023-09-12 09:24] LABS: APTT 40 SECONDS (22-32); INR 1.8 INR; PROTHROMBIN TIME 18.8 SECONDS (9.0-12.0)
[2023-09-12 09:31] LABS: ALANINE AMINOTRANSFERASE 20 U/L (12-78); ALBUMIN 3.2 G/DL (3.4-5.0); ALBUMIN/GLOBULIN RATIO 0.9 (1.1-1.5); ALKALINE PHOSPHATASE 167 IU/L (46-116); ANION GAP 8 (8-16); ASPARTATE AMINO TRANSFERASE 27 U/L (10-37); BILIRUBIN,TOTAL 1.5 MG/DL (0.1-1.0); BLOOD UREA NITROGEN 23 MG/DL (7-18); BUN/CREATININE RATIO 17.7 (10.0-20.0); CALCIUM 8.7 MG/DL (8.5-10.1); CHLORIDE 108 MMOL/L (99-107); GLUCOSE 109 MG/DL (70-104); POTASSIUM 3.9 MMOL/L (3.5-5.1); SODIUM 142 MMOL/L (135-145); TOTAL CARBON DIOXIDE 25.7 MMOL/L (24-32); TOTAL PROTEIN 6.8 G/DL (6.4-8.2); eGFR 53 ML/MIN
== END | disposition home or self-care (01) ==
LOC: RAD 08:30
PROVIDERS: ATTEND Student in an Organized Health Care Education/Training Program
DX: I48.91 Unspecified atrial fibrillation (principal); Z95.818 Presence of other cardiac implants and grafts; I48.0 Paroxysmal atrial fibrillation
CPT/HCPCS: 36415; 75572; 80053; 85025; 85610; 85730; J3490; Q9967

== ENCOUNTER 2024-07-28 09:19 | Inpatient (IN) | payer MEDICARE, OTHER ==
[~2024-07-28] VITALS: Ht 177.8 cm; Wt 89.2 kg
[~2024-07-28 09:19] MED LIST changes: -iohexol 350MG/ML 100ml bottle IV ONE
[2024-07-28 09:51] LABS: BASOPHILS % (AUTO) 0.7 % (0-1); EOSINOPHILS # (AUTO) 0.2 X10'3 (0-0.9); EOSINOPHILS % (AUTO) 2.8 % (0-6); HEMATOCRIT 39.8 % (42.0-52.0); HEMOGLOBIN 13.3 g/dl (14.0-17.9); LYMPHOCYTES # (AUTO) 1.3 X10'3 (1.1-4.8); MEAN CORPUSCULAR HEMOGLOBIN 32.2 PG (27.0-31.0); MEAN CORPUSCULAR HGB CONC 33.4 g/dL (33.0-36.5); MEAN CORPUSCULAR VOLUME 96.4 FL (78-98); MEAN PLATELET VOLUME 10.1 FL (7.4-10.4); MONOCYTES # (AUTO) 0.5 X10'3 (0-0.9); NEUTROPHILS # (AUTO) 3.7 X10'3 (1.8-7.7); NEUTROPHILS % (AUTO) 64.5 % (42-75); PLATELET COUNT 132 X10'3 (140-440); RED BLOOD COUNT 4.13 X10'6 (4.70-6.10); RED CELL DISTRIBUTION WIDTH 15.4 % (11.5-14.5); WHITE BLOOD COUNT 5.7 X10'3 (4.5-11.0)
[2024-07-28 10:09] LABS: ALANINE AMINOTRANSFERASE 25 U/L (12-78); ALBUMIN 3.1 G/DL (3.4-5.0); ALBUMIN/GLOBULIN RATIO 0.8 (1.1-1.5); ALKALINE PHOSPHATASE 146 IU/L (46-116); ANION GAP 11 (8-16); ASPARTATE AMINO TRANSFERASE 28 U/L (10-37); BILIRUBIN,TOTAL 1.6 MG/DL (0.1-1.0); BLOOD UREA NITROGEN 14 MG/DL (7-18); BUN/CREATININE RATIO 13.3 (10.0-20.0); CALCIUM 8.6 MG/DL (8.5-10.1); CHLORIDE 109 MMOL/L (99-107); CREATININE 1.05 MG/DL (0.60-1.10); GLUCOSE 100 MG/DL (70-104); POTASSIUM 3.9 MMOL/L (3.5-5.1); SODIUM 146 MMOL/L (135-145); TOTAL CARBON DIOXIDE 25.8 MMOL/L (24-32); TOTAL PROTEIN 6.8 G/DL (6.4-8.2); eCRCL 53 ML/MIN; eGFR 67 ML/MIN
[2024-07-28 10:16] LABS: PRO BRAIN NATRIURETIC PEPTIDE 10047 PG/ML (0-450)
[2024-07-28] MEDS: aspirin 81mg tab.chew PO ONE (10:25)
[2024-07-28] MEDS: furosemide 10 MG/1 ML 10ml inj IV ONE (10:55)
[2024-07-28] MEDS ORDERED: ASPI-1265 PO (10:57)
[2024-07-28] MEDS ORDERED: FURO20TA4 PO (10:59)
[2024-07-28] MEDS ORDERED: GLIM4TAB7 PO (10:59)
[2024-07-28] MEDS ORDERED: FLO0.4C (10:59)
[2024-07-28] MEDS ORDERED: FERR-119 PO (11:01)
[2024-07-28] MEDS ORDERED: VIT1CAPS46 PO (11:01)
[2024-07-28 11:05] LABS: MAGNESIUM 1.8 MG/DL (1.5-2.4)
[2024-07-28] MEDS ORDERED: POTA-192 PO (11:05)
--- NOTE | 2024-07-28 11:05 | NUR ---
PATIENT HAS A DEFIBRILLATOR AND WATCHMAN.
--- NOTE | 2024-07-28 11:22 | NUR ---
Patient sitting up on edge of bed with no needs at this time.
[2024-07-28] MEDS ORDERED: mag hydrox/Alum hydrox/simeth 30ml oral suspension PO PRN (12:50)
[2024-07-28] MEDS ORDERED: magnesium hydroxide 30ml (MOM) UD suspension PO PRN (12:50)
[2024-07-28] MEDS ORDERED: potassium Cl 20 mEq SR tablet PO PRN (12:50)
[2024-07-28] MEDS ORDERED: ondansetron/PF 4mg/2ml inj IV PRN (12:50)
[2024-07-28] MEDS ORDERED: magnesium sulf-water 2g/50mL 50 ML IV PRN (12:50)
[2024-07-28] MEDS ORDERED: magnesium sulf-water 4G/100mL 100 ML IV PRN (12:50)
[2024-07-28] MEDS ORDERED: acetaminophen 325mg tablet PO PRN (12:50)
[2024-07-28 13:55] LABS: APTT 30 SECONDS (22-32); INR 1.3 INR; PROTHROMBIN TIME 13.8 SECONDS (9.0-12.0)
[2024-07-28] MEDS: aspirin 81mg tab.chew PO SCH (16:25)
[2024-07-28] MEDS ORDERED: glucagon, human recombinant 1mg kit SUBCUT PRN (16:30)
[2024-07-28] MEDS ORDERED: dextrose 50%-water 50ml dispensing syringe IV PRN ×2 (16:30)
[2024-07-28] MEDS ORDERED: DEXTROSE 15 GM of carb/4 tabs (each vial/BOTTLE has 4 tablets) PO PRN ×2 (16:30)
[2024-07-28] MEDS: lisinopril 20mg tablet PO SCH (16:45)
[2024-07-28] MEDS: INSULIN LISPRO 100 UNIT/ML INSULN.PEN MULTI-DOSE SQ SCH (18:15)
--- NOTE | 2024-07-28 19:15 | NUR ---
ATTEMPTED TO CALL REPORT. NO NURSE AVAILABLE. THEY WILL CALL RN BACK.
[2024-07-28] MEDS: enoxaparin 100mg/ml syringe SUBCUT ONE (19:18)
[2024-07-28] MEDS: K and/or MAG REPLACEMENT MC SCH (19:19)
--- NOTE | 2024-07-28 19:49 | NUR ---
ATTEMPTED TO CALL REPORT AGAIN. WAITING ON HOLD.
[2024-07-28] MEDS ORDERED: heparin, porcine 5000 units/ml vial SQ SCH (20:00)
[2024-07-28] MEDS: docusate sod 100mg capsule PO SCH (20:00)
[2024-07-28] MEDS: ferrous sulfate 325mg tablet PO SCH (21:25)
[2024-07-28] MEDS: atorvastatin 20mg tablet PO SCH (21:42)
[2024-07-28] MEDS: carVEDilol 12.5mg tablet PO SCH (21:51)
[2024-07-28 22:00] VITALS: BP 147/92; PULSE 79; RESP 22; TEMP 97.7; O2SAT 97
[2024-07-28] MEDS: furosemide 40mg/4ml inj IV ONE (22:41)
[2024-07-29] VITALS (7 sets, daily range): BP systolic 142–156; BP diastolic 86–98; PULSE 64–99; RESP 15–25; TEMP 97.5–98.3; O2SAT 90–93
--- NOTE | 2024-07-29 06:39 | NUR ---
Problems reprioritized. Patient report given, questions answered & plan of care reviewed with Miah RN, patient stable at transfer of care.
[2024-07-29 07:23] LABS: BASOPHILS # (AUTO) 0.1 X10'3 (0-0.2); BASOPHILS % (AUTO) 0.8 % (0-1); EOSINOPHILS # (AUTO) 0.2 X10'3 (0-0.9); EOSINOPHILS % (AUTO) 3.2 % (0-6); HEMATOCRIT 38.8 % (42.0-52.0); LYMPHOCYTES # (AUTO) 1.5 X10'3 (1.1-4.8); LYMPHOCYTES % (AUTO) 24.7 % (21-51); MEAN CORPUSCULAR HEMOGLOBIN 31.6 PG (27.0-31.0); MEAN CORPUSCULAR HGB CONC 33.6 g/dL (33.0-36.5); MEAN CORPUSCULAR VOLUME 94.1 FL (78-98); MEAN PLATELET VOLUME 9.9 FL (7.4-10.4); MONOCYTES # (AUTO) 0.6 X10'3 (0-0.9); MONOCYTES % (AUTO) 9.2 % (2-12); NEUTROPHILS # (AUTO) 3.7 X10'3 (1.8-7.7); NEUTROPHILS % (AUTO) 62.1 % (42-75); PLATELET COUNT 159 X10'3 (140-440); RED BLOOD COUNT 4.12 X10'6 (4.70-6.10); RED CELL DISTRIBUTION WIDTH 15.3 % (11.5-14.5)
[2024-07-29] MEDS: furosemide 10 MG/1 ML 10ml inj IV SCH (07:28)
[2024-07-29 07:35] LABS: ALANINE AMINOTRANSFERASE 21 U/L (12-78); ALBUMIN 3.2 G/DL (3.4-5.0); ALBUMIN/GLOBULIN RATIO 0.9 (1.1-1.5); ALKALINE PHOSPHATASE 145 IU/L (46-116); ANION GAP 6 (8-16); ASPARTATE AMINO TRANSFERASE 26 U/L (10-37); BILIRUBIN,TOTAL 1.5 MG/DL (0.1-1.0); BLOOD UREA NITROGEN 18 MG/DL (7-18); BUN/CREATININE RATIO 16.4 (10.0-20.0); CALCIUM 8.9 MG/DL (8.5-10.1); CHLORIDE 105 MMOL/L (99-107); CHOL/HDL RATIO 3.2 (0.00-4.99); CHOLESTEROL 84 MG/DL (0-200); GLUCOSE 109 MG/DL (70-104); HDL CHOLESTEROL 26 MG/DL (35-60); LDL CHOLESTEROL 46 MG/DL (50-100); MAGNESIUM 1.7 MG/DL (1.5-2.4); SODIUM 146 MMOL/L (135-145); TOTAL CARBON DIOXIDE 35.3 MMOL/L (24-32); TOTAL PROTEIN 6.9 G/DL (6.4-8.2); TRIGLYCERIDES 62 MG/DL (20-135); eCRCL 51 ML/MIN; eGFR 64 ML/MIN
[2024-07-29 07:40] LABS: POTASSIUM 2.9 MMOL/L (3.5-5.1)
--- NOTE | 2024-07-29 07:46 | NUR ---
patient k is 2.9 and is on the floor and informed
--- NOTE | 2024-07-29 09:15 | NUR ---
PAGER ID: [phone] MESSAGE: Patient in room 3025A, Celso Mccabe, Troponin is 332 Thank you Sandra [phone] ([phone] character message out of a maximum [phone])
[2024-07-29] MEDS: potassium Cl 40MEQ/1/2NS 520ml 520 ML IV PRN (10:27)
--- NOTE | 2024-07-29 11:53 | NUR ---
DM consult: Pt presents with an A1c of 7% this admit per EMR. A1c this admit is down fro 8.1% on 07/16/23 and overall is well controlled thus diabetes nutrition education is not warranted at this time. Addendum: 07/29/24 at [address] Amended: Links added.
--- NOTE | 2024-07-29 18:15 | NUR ---
Patient in room PCU 3025. I have received report from Sandra ENRIQUEZ and had the opportunity to ask questions and assume patient care.
--- NOTE | 2024-07-29 19:10 | NUR ---
Problems reprioritized. Patient report given, questions answered & plan of care reviewed with Charles.
[2024-07-30 02:00] VITALS: BP_SYST 119; BP_SYST 141; BP_DIAS 52; BP_DIAS 98; PULSE 45; PULSE 90; RESP 10; RESP 17; TEMP 97.7; TEMP 98.6; O2SAT 93; O2SAT 98
[2024-07-30 05:04] LABS: HEMOGLOBIN 12.9 g/dl (14.0-17.9); MEAN CORPUSCULAR VOLUME 95.2 FL (78-98); PLATELET COUNT 187 X10'3 (140-440)
[2024-07-30 05:05] LABS: BASOPHILS % (AUTO) 0.2 % (0-1); EOSINOPHILS % (AUTO) 0.3 % (0-6); HEMATOCRIT 38.3 % (42.0-52.0); LYMPHOCYTES % (AUTO) 7.4 % (21-51); MEAN CORPUSCULAR HEMOGLOBIN 32.2 PG (27.0-31.0); MEAN CORPUSCULAR HGB CONC 33.8 g/dL (33.0-36.5); MEAN PLATELET VOLUME 9.6 FL (7.4-10.4); MONOCYTES # (AUTO) 1.1 X10'3 (0-0.9); MONOCYTES % (AUTO) 7.7 % (2-12); NEUTROPHILS # (AUTO) 11.4 X10'3 (1.8-7.7); NEUTROPHILS % (AUTO) 84.4 % (42-75); RED BLOOD COUNT 4.02 X10'6 (4.70-6.10); RED CELL DISTRIBUTION WIDTH 15.4 % (11.5-14.5); WHITE BLOOD COUNT 13.6 X10'3 (4.5-11.0)
[2024-07-30 05:23] LABS: ALANINE AMINOTRANSFERASE 21 U/L (12-78); ALBUMIN/GLOBULIN RATIO 0.8 (1.1-1.5); ALKALINE PHOSPHATASE 137 IU/L (46-116); ANION GAP 6 (8-16); ASPARTATE AMINO TRANSFERASE 25 U/L (10-37); BILIRUBIN,TOTAL 1.5 MG/DL (0.1-1.0); BLOOD UREA NITROGEN 21 MG/DL (7-18); BUN/CREATININE RATIO 18.6 (10.0-20.0); CALCIUM 8.9 MG/DL (8.5-10.1); CHLORIDE 104 MMOL/L (99-107); CREATININE 1.13 MG/DL (0.60-1.10); GLUCOSE 154 MG/DL (70-104); MAGNESIUM 1.4 MG/DL (1.5-2.4); POTASSIUM 3.3 MMOL/L (3.5-5.1); SODIUM 143 MMOL/L (135-145); TOTAL CARBON DIOXIDE 32.8 MMOL/L (24-32); TOTAL PROTEIN 6.7 G/DL (6.4-8.2); eCRCL 49 ML/MIN; eGFR 62 ML/MIN
[2024-07-30 05:41] LABS: PLATELET ESTIMATE NORMAL
[2024-07-30 05:43] LABS: ACANTHOCYTES 1+; ANISOCYTOSIS 1+; POLYCHROMASIA FEW
[2024-07-30 06:00] VITALS: BP 116/67; PULSE 105; RESP 19; TEMP 97.4; O2SAT 95
--- NOTE | 2024-07-30 06:25 | NUR ---
Problems reprioritized. Patient report given, questions answered & plan of care reviewed with Sandra ENRIQUEZ.
[2024-07-30] MEDS: enoxaparin 40mg/0.4ml syringe SUBCUT SCH (07:30)
[2024-07-30] MEDS: magnesium Cl slow-release 64mg tablet PO PRN (07:30)
[2024-07-30] MEDS: potassium Cl 20 mEq SR tablet PO PRN (07:30)
[2024-07-30] MEDS: furosemide 40mg/4ml inj IV SCH (07:30)
[2024-07-30] MEDS: spironolactone 25 MG tablet PO SCH (07:34)
[2024-07-30 08:00] VITALS: RESP 19; O2SAT 95
[2024-07-30 11:00] VITALS: BP 133/85; PULSE 88; RESP 18; TEMP 98; O2SAT 97
--- NOTE | 2024-07-30 11:06 | NUR ---
patient walked with PT 300ft, HR went up to 111 and took about 2 mins to lower it down to 90s
[2024-07-30] MEDS ORDERED: FURO20TA4 PO (12:51)
[2024-07-30] MEDS ORDERED: SPIR25TA PO (12:51)
[2024-07-30] MEDS ORDERED: EMPA10TA PO (12:51)
--- NOTE | 2024-07-30 14:34 | NUR ---
patient got discharge at 1400 accompanied by family and production underwriter rolled him down to the car in wheelchair, stable on discharge, all discharge instructions given, iv removed with tip intact, tele removed
== END 2024-07-30 15:51 | disposition home or self-care (01) | DRG 280 ==
LOC: ER 09:20 → ED HOLD 13:16 → PCU 3S 20:15
PROVIDERS: ADMIT Internal Medicine; ATTEND Internal Medicine
PROC: 5A09357 Assistance with Respiratory Ventilation, Less than 24 Consecutive Hours, Continuous Positive Airway Pressure (ICD-10-PCS; principal; 2024-07-29)
PROC: 5A09357 Assistance with Respiratory Ventilation, Less than 24 Consecutive Hours, Continuous Positive Airway Pressure (ICD-10-PCS; 2024-07-30)
DX: I13.0 Hypertensive heart and chronic kidney disease with heart failure and stage 1 through stage 4 chronic kidney disease, or unspecified chronic kidney disease (principal); I50.33 Acute on chronic diastolic (congestive) heart failure; I21.A1 Myocardial infarction type 2; I48.20 Chronic atrial fibrillation, unspecified; E87.6 Hypokalemia; I25.10 Atherosclerotic heart disease of native coronary artery without angina pectoris; E11.22 Type 2 diabetes mellitus with diabetic chronic kidney disease; Z20.822 Contact with and (suspected) exposure to COVID-19; M06.9 Rheumatoid arthritis, unspecified; E78.00 Pure hypercholesterolemia, unspecified; N18.30 Chronic kidney disease, stage 3 unspecified; Z95.1 Presence of aortocoronary bypass graft; Z95.810 Presence of automatic (implantable) cardiac defibrillator; Z85.46 Personal history of malignant neoplasm of prostate; Z87.891 Personal history of nicotine dependence; Z79.899 Other long term (current) drug therapy; Z79.82 Long term (current) use of aspirin; Z79.84 Long term (current) use of oral hypoglycemic drugs; Z80.8 Family history of malignant neoplasm of other organs or systems
CPT/HCPCS: 36415; 71045; 80053; 80061; 82948; 83036; 83735; 83880; 84484; 85008; 85025; 85610; 85730; 87081; 87811; 93005; 93306; 97116; 97161; 99285; A6590; G0378; J1650; J1815; J1940; J3480; J7040

== ENCOUNTER 2024-12-27 12:26 | Emergency (ER) | payer MEDICARE, OTHER ==
[~2024-12-27] VITALS: Ht 177.8 cm; Wt 95.5 kg
[~2024-12-27 12:26] MED LIST changes: +ASPI-1265 PO; -BETA1TAB20 PO; -CHOL500050 PO; -CIPR-429 PO; +EMPA10TA PO; +FERR-119 PO; +FLO0.4C; +FURO20TA4 PO; -FURO40TA4 PO; -GLIM2TAB6 PO; +GLIM4TAB7 PO; +POTA-192 PO; -POTA-197 PO; +SPIR25TA PO; -WARF-55 PO; -WARF5TAB9 PO
[2024-12-27] MEDS ORDERED: ALBU8HFA INH (15:13)
[2024-12-27] MEDS ORDERED: AZIT250T83 PO (15:13)
[2024-12-27 15:19] VITALS: BP 114/58; PULSE 64; RESP 16; TEMP 97.8; O2SAT 96
== END 2024-12-27 15:19 | disposition home or self-care (01) ==
LOC: ER 12:28
DX: B34.9 Viral infection, unspecified (principal); I48.91 Unspecified atrial fibrillation; I25.10 Atherosclerotic heart disease of native coronary artery without angina pectoris; E78.00 Pure hypercholesterolemia, unspecified; I10 Essential (primary) hypertension; E11.9 Type 2 diabetes mellitus without complications; Z20.822 Contact with and (suspected) exposure to COVID-19; Z95.810 Presence of automatic (implantable) cardiac defibrillator; Z95.1 Presence of aortocoronary bypass graft; Z79.82 Long term (current) use of aspirin
CPT/HCPCS: 36415; 71045; 87502; 87503; 87811; 93005; 99285